=== PATIENT | female | born 2000 | race Caucasian/White ===

== ENCOUNTER 2023-06-11 05:00 | Inpatient (IN) | payer BC ==
[2023-06-16] MEDS ORDERED: Ondansetron PF 4 MG/2 ML Vial IVP PRN ×3 (03:22→22:02)
[2023-06-16] MEDS ORDERED: hydrALAZINE 20 MG/ML VIAL SLOW IVP PRN ×2 (03:22→22:02)
[2023-06-16] MEDS ORDERED: fentaNYL 50 mcg/mL 1 mL Vial SLOW IVP PRN (03:22)
[2023-06-16] MEDS ORDERED: HYDROcodone/Acetaminophen 5/325 mg Tablet PO PRN ×4 (03:22→22:02)
[2023-06-16] MEDS ORDERED: Ibuprofen 800 MG TAB PO PRN (03:22)
[2023-06-16] MEDS ORDERED: Misoprostol 100 MCG TAB VAG SCH (03:22)
[2023-06-16] MEDS ORDERED: Lidocaine 1% (PF) 30 ML VIAL SC PRN (03:22)
[2023-06-16] MEDS ORDERED: Promethazine HCl 25 MG/ML VIAL IM PRN ×2 (03:22→14:29)
[2023-06-16] MEDS ORDERED: Misoprostol 100 MCG TAB ONE (03:38)
[2023-06-16 03:49] LABS: Hematocrit 34.5 % (34.9-44.5); Hemoglobin 12.1 g/dL (12.0-15.5); Mean Corpuscular HGB CONC 35.1 g/dL (32.0-36.0); Mean Corpuscular Hemoglobin 30.7 pg (27.0-33.0); Mean Corpuscular Volume 87.6 fl (81.6-98.3); Mean Platelet Volume 11.6 fl (7.4-10.4); Platelet Count 200 10x3/uL (150-450); RBC Distribution Width 12.9 % (11.5-14.5); Red Blood Cell (RBC) Count 3.94 10x6/uL (3.90-5.03); White Blood Cell (WBC) Count 10.9 10x3/uL (3.5-10.5)
[2023-06-16 04:20] LABS: HBSAg Index 0.18 S/CO (0-0.99); Hep B Surf Ag - L&D Non-Reactive S/CO (NonReactive)
[2023-06-16 04:22] LABS: Syphilis Antibody Nonreactive (Nonreactive); Syphilis Antibody Index 0.08 S/CO (<1.00 Non-Reactive)
[2023-06-16 04:26] VITALS: BMI 29.4
[2023-06-16] MEDS ORDERED: Oxytocin 30 units/NS 500 ML 500 ML IV SCH ×3 (05:00→22:15)
[2023-06-16] MEDS: Lactated Ringer's 1,000 ML IV SCH ×2 (08:18→22:38)
[2023-06-16] MEDS: Misoprostol 100 MCG TAB VAG SCH ×3 (08:29→22:39)
[2023-06-16] MEDS ORDERED: Terbutaline Sulfate 1 MG/ML VIAL ONE (08:48)
[2023-06-16] MEDS ORDERED: fentaNYL/Ropivacaine Epidural 100 ML ONE (12:37)
[2023-06-16] MEDS ORDERED: ePHEDrine Sulfate 50 MG/10 ML VIAL SLOW IVP PRN (14:29)
[2023-06-16] MEDS ORDERED: Lactated Ringer's 500 ML IV PRN (14:29)
[2023-06-16] MEDS ORDERED: Acetaminophen 325 MG TAB PO PRN (14:29)
[2023-06-16] MEDS ORDERED: Naloxone HCl 0.4 mg/ml Vial IVP PRN ×2 (14:29)
[2023-06-16] MEDS ORDERED: diphenhydrAMINE 50 MG/ML VIAL IVP PRN (14:29)
[2023-06-16] MEDS ORDERED: Moisturizing Cream (Eucerin) 113 GM JAR TOP PRN (14:29)
[2023-06-16] MEDS ORDERED: fentaNYL 2 mcg/Ropivacaine 0.2% Epidural 100 ML CADD EPIDURAL SCH (14:30)
[2023-06-16] MEDS ORDERED: Communication Order-Pharmacy FS SCH (14:30)
[2023-06-16] MEDS ORDERED: Bisacodyl 10 MG SUPP PR PRN (22:02)
[2023-06-16] MEDS ORDERED: Benzocaine-Menthol 82.5 ML CAN TOP PRN (22:02)
[2023-06-16] MEDS ORDERED: Boostrix 0.5 ML (Tdap) VIAL (>/=7 yrs of age) IM ONE (22:02)
[2023-06-16] MEDS ORDERED: diphenhydrAMINE 25 MG CAP PO PRN (22:02)
[2023-06-16] MEDS ORDERED: Lanolin Ointment 7 GM TUBE TOP PRN (22:02)
[2023-06-16] MEDS ORDERED: Preparation H Ointment 28 GM TUBE PR PRN (22:02)
[2023-06-16] MEDS ORDERED: Milk Of Magnesia 30 ML UDCUP PO PRN (22:02)
[2023-06-16] MEDS ORDERED: Docusate 100 MG CAP PO SCH (22:15)
[2023-06-16] MEDS: Ibuprofen 800 MG TAB PO SCH (22:46)
[2023-06-17] MEDS: Ibuprofen 800 MG TAB PO SCH ×3 (05:50→22:28)
[2023-06-17] MEDS: Ferrous Sulfate 325 MG TAB PO SCH ×2 (08:21→14:25)
[2023-06-17] MEDS ORDERED: Prenatal Vitamin 1 TAB PO SCH (09:00)
[2023-06-17] MEDS: Docusate 100 MG CAP PO SCH ×2 (09:10→22:28)
[2023-06-18] MEDS: Ibuprofen 800 MG TAB PO SCH (05:35)
[2023-06-18 07:49] VITALS: BP 104/61; TEMP 97.6
== END 2023-06-18 11:30 | disposition home or self-care (01) | DRG 807 ==
LOC: CSHLD 06-16 01:19 → CSHPP 06-16 22:25
PROVIDERS: ADMIT Obstetrics & Gynecology; ATTEND Obstetrics & Gynecology
PROC: 10E0XZZ Delivery of Products of Conception, External Approach (ICD-10-PCS; principal; 2023-06-16)
PROC: 10907ZC Drainage of Amniotic Fluid, Therapeutic from Products of Conception, Via Natural or Artificial Opening (ICD-10-PCS; 2023-06-16)
PROC: 0HQ9XZZ Repair Perineum Skin, External Approach (ICD-10-PCS; 2023-06-16)
PROC: 0UQMXZZ Repair Vulva, External Approach (ICD-10-PCS; 2023-06-16)
DX: O48.0 Post-term pregnancy (principal); Z37.0 Single live birth; Z3A.41 41 weeks gestation of pregnancy; O77.0 Labor and delivery complicated by meconium in amniotic fluid; O70.0 First degree perineal laceration during delivery
CPT/HCPCS: 36415; 85027; 86780; 86850; 86900; 86901; 87340; J2590; J7120

== ENCOUNTER 2025-05-22 18:00 | Inpatient (IN) | payer BC ==
[~2025-05-22 18:00] MED LIST: Bupivacaine 0.25% HCL 30 ML VIAL ONE
[2025-05-22 18:33] VITALS: BMI 29.4
[2025-05-22] MEDS ORDERED: Oxytocin 30 units/NS 500 ML 500 ML IV SCH (19:15)
[2025-05-22] MEDS ORDERED: hydrALAZINE 20 MG/ML VIAL SLOW IVP PRN (19:15)
[2025-05-22] MEDS ORDERED: Ibuprofen 800 MG TAB PO PRN (19:15)
[2025-05-22] MEDS ORDERED: Lidocaine 1% (PF) 30 ML VIAL SC PRN (19:15)
[2025-05-22] MEDS ORDERED: HYDROcodone/Acetaminophen 5/325 mg Tablet PO PRN ×2 (19:15)
[2025-05-22 19:33] LABS: Hematocrit 33.9 % (34.9-44.5); Hemoglobin 11.3 g/dL (12.0-15.5); Mean Corpuscular Hemoglobin 27.8 pg (27.0-33.0); Mean Corpuscular Volume 83.3 fL (81.6-98.3); Platelet Count 177 10x3/uL (150-450); Red Blood Cell (RBC) Count 4.07 10x6/uL (3.90-5.03); White Blood Cell (WBC) Count 8.48 10x3/uL (3.5-10.5)
[2025-05-22 21:25] LABS: Hep B Surf Ag - L&D Non-Reactive S/CO (NonReactive)
[2025-05-22 21:27] LABS: Syphilis Antibody Index 0.07 S/CO (<1.00 Non-Reactive)
[2025-05-23] MEDS: fentaNYL/Ropivacaine Epidural 100 ML ONE (03:15)
[2025-05-23] MEDS ORDERED: Acetaminophen 325 MG TAB PO PRN (03:41)
[2025-05-23] MEDS ORDERED: diphenhydrAMINE 50 MG/ML VIAL IVP PRN (03:41)
[2025-05-23] MEDS ORDERED: fentaNYL 2 mcg/Ropivacaine 0.2% Epidural 100 ML CADD EPIDURAL SCH (03:45)
[2025-05-23] MEDS ORDERED: Communication Order-Pharmacy FS SCH (03:45)
[2025-05-23] MEDS: Oxytocin 30 units/NS 500 ML 500 ML IV SCH (10:05)
[2025-05-23] MEDS: Methylergonovine 0.2 MG/ML VIAL ONE (14:09)
[2025-05-23] MEDS: Ondansetron PF 4 MG/2 ML Vial IVP PRN ×2 (14:16→14:49)
[2025-05-23] MEDS ORDERED: diphenhydrAMINE 25 MG CAP PO PRN (16:29)
[2025-05-23] MEDS ORDERED: Preparation H Ointment 28 GM TUBE PR PRN (16:29)
[2025-05-23] MEDS ORDERED: Benzocaine-Menthol 82.5 ML CAN TOP PRN (16:29)
[2025-05-23] MEDS ORDERED: Milk Of Magnesia 30 ML UDCUP PO PRN (16:29)
[2025-05-23] MEDS ORDERED: HYDROcodone/Acetaminophen 5/325 mg Tablet PO PRN ×2 (16:29)
[2025-05-23] MEDS ORDERED: Bisacodyl 10 MG SUPP PR PRN (16:29)
[2025-05-23] MEDS ORDERED: Ondansetron PF 4 MG/2 ML Vial IVP PRN (16:29)
[2025-05-23] MEDS ORDERED: hydrALAZINE 20 MG/ML VIAL SLOW IVP PRN (16:29)
[2025-05-23] MEDS: Ibuprofen 800 MG TAB PO SCH (19:53)
[2025-05-24] MEDS: Ibuprofen 800 MG TAB PO SCH (03:00)
[2025-05-24] MEDS: Ferrous Sulfate 325 MG TAB PO SCH (03:44)
[2025-05-24 09:00] VITALS: BP 105/59; TEMP 97.6
== END 2025-05-24 15:35 | disposition home or self-care (01) | DRG 807 ==
LOC: CSHLD 18:21 → CSHPP 05-23 16:02
PROVIDERS: ADMIT Obstetrics & Gynecology; ATTEND Obstetrics & Gynecology
PROC: 10E0XZZ Delivery of Products of Conception, External Approach (ICD-10-PCS; principal; 2025-05-23)
DX: O48.0 Post-term pregnancy (principal); Z37.0 Single live birth; Z3A.41 41 weeks gestation of pregnancy
CPT/HCPCS: 51702; 85027; 86780; 86850; 86900; 86901; 87340; J0665; J2210; J2405; J2590